=== PATIENT | female | born 1955 | race Caucasian/White ===

== ENCOUNTER 2021-12-22 15:30 | Inpatient (IN) | payer MEDICARE, BC ==
[2021-12-22] MEDS ORDERED: Magnesium 2 GM/50 ML BAG (IN WATER) ONE (17:45)
[2021-12-22] MEDS ORDERED: Amiodarone 150 MG/3 ML VIAL ONE (17:45)
[2021-12-22 17:52] LABS: #Basophils 0.1 thou/uL (0.0-0.2); #Eosinphils 0.1 thou/uL (0.0-0.7); #Lymphocytes 1.9 thou/uL (1.20-3.40); #Monocytes 0.4 thou/uL (0.11-0.59); %Basophils 1.2 % (0.0-1.0); %Eosinophils 1.3 % (0.0-10.0); %Lymphocytes 42.6 % (21.0-51.0); %Monocytes 9.5 % (0.0-10.0); %Neutrophils 45.4 % (42.0-75.0); Mean Corpuscular Hemoglobin 31.9 pg (27.0-31.0); Mean Corpuscular Volume 96.8 fL (78.0-98.0); Platelet Count 194 thou/uL (130-400); RBC Distribution Width 11.8 % (11.5-14.5); Red Blood Cell (RBC) Count 4.06 mill/uL (4.20-5.40); White Blood Cell (WBC) Count 4.4 thou/uL (4.8-10.8)
[2021-12-22 18:07] LABS: ALT (SGPT) 44 U/L (8-55); AST (SGOT) 39 U/L (5-34); Albumin 4.2 g/dL (3.4-4.8); Alkaline Phosphatase 62 U/L (40-110); Anion Gap 13 mmol/L (10-20); BUN (Urea Nitrogen) 11 mg/dL (9.8-20.1); Bilirubin, Total 0.3 mg/dL (0.2-1.2); CK (CPK) 111 U/L (29-168); Calc. Creatinine Clearance 0 mL/min (70-130); Calcium 9.3 mg/dL (7.8-10.44); Carbon Dioxide 27 mmol/L (23-31); Chloride 106 mmol/L (98-107); Estimated GFR 84; Globulin 2.2 g/dL (2.4-3.5); Glucose 106 mg/dL (80-115); Lipase 106 U/L (8-78); Potassium 3.5 mmol/L (3.5-5.1); Protein, Total 6.4 g/dL (5.8-8.1); Sodium 142 mmol/L (136-145)
[2021-12-22] MEDS ORDERED: Electrolyte Replacement Protocol 1 EACH FS PRN (18:45)
[2021-12-22 19:00] LABS: Magnesium 2.3 mg/dL (1.6-2.6)
[2021-12-22 20:22] LABS: SARS-CoV-2 NAA Rapid Test Not Detected (NotDetected)
[2021-12-22] MEDS ORDERED: Acetaminophen 325 MG TAB PO PRN (20:27)
[2021-12-22] MEDS ORDERED: Ondansetron PF 4 MG/2 ML Vial IVP PRN (20:27)
[2021-12-22] MEDS ORDERED: Metoprolol Tartrate 25 MG TAB PO SCH (21:00)
[2021-12-22 21:11] LABS: Troponin I 0.038 ng/mL (< 0.028)
[2021-12-22 21:14] VITALS: BMI 22.3
[2021-12-22] MEDS: Famotidine 20 MG TAB PO SCH (21:28)
[2021-12-22] MEDS ORDERED: Metoprolol Tartrate 5 MG/5 ML VIAL IVP SCH (22:45)
[2021-12-23] MEDS ORDERED: Amiodarone 450 MG, Admixture Fee 1 EACH in Dextrose 5% in Water 250 ML IVPB SCH (00:30)
[2021-12-23 00:48] LABS: Troponin I 0.038 ng/mL (< 0.028)
[2021-12-23 03:37] LABS: #Eosinphils 0.1 thou/uL (0.0-0.7); #Lymphocytes 1.7 thou/uL (1.20-3.40); #Monocytes 0.4 thou/uL (0.11-0.59); #Neutrophils 3.3 thou/uL (1.40-6.50); %Basophils 0.6 % (0.0-1.0); %Eosinophils 1.3 % (0.0-10.0); %Lymphocytes 30.7 % (21.0-51.0); %Monocytes 7.6 % (0.0-10.0); %Neutrophils 59.8 % (42.0-75.0); Hemoglobin 12.7 g/dL (12.0-16.0); Mean Corpuscular HGB CONC 33.3 g/dL (32.0-36.0); Mean Corpuscular Hemoglobin 32.3 pg (27.0-31.0); Mean Corpuscular Volume 96.8 fL (78.0-98.0); Mean Platelet Volume 7.7 fL (7.4-10.4); Platelet Count 180 thou/uL (130-400); RBC Distribution Width 11.8 % (11.5-14.5); Red Blood Cell (RBC) Count 3.92 mill/uL (4.20-5.40); White Blood Cell (WBC) Count 5.4 thou/uL (4.8-10.8)
[2021-12-23 04:00] LABS: Anion Gap 11 mmol/L (10-20); BUN (Urea Nitrogen) 9 mg/dL (9.8-20.1); Calc. Creatinine Clearance 72 mL/min (70-130); Calcium 8.3 mg/dL (7.8-10.44); Carbon Dioxide 23 mmol/L (23-31); Chloride 110 mmol/L (98-107); Estimated GFR 94; Glucose 109 mg/dL (80-115); Potassium 3.7 mmol/L (3.5-5.1); Sodium 140 mmol/L (136-145)
[2021-12-23 04:05] LABS: ALT (SGPT) 44 U/L (8-55); AST (SGOT) 39 U/L (5-34); Albumin 3.5 g/dL (3.4-4.8); Alkaline Phosphatase 52 U/L (40-110); Bilirubin, Direct 0.1 mg/dL (0.1-0.3); Bilirubin, Total 0.3 mg/dL (0.2-1.2); Magnesium 2.4 mg/dL (1.6-2.6); Protein, Total 5.2 g/dL (5.8-8.1)
[2021-12-23] MEDS ORDERED: Enoxaparin Sodium 40 MG/0.4 ML SYRINGE SC SCH (09:00)
[2021-12-23] MEDS ORDERED: Levothyroxine Sodium 25 MCG TAB PO SCH (09:15)
[2021-12-23] MEDS: Metoprolol Tartrate 25 MG TAB PO SCH ×2 (10:06→20:53)
[2021-12-23] MEDS: Famotidine 20 MG TAB PO SCH ×2 (10:07→20:53)
[2021-12-23] MEDS: Apixaban 5 MG TAB PO SCH ×2 (10:07→20:53)
[2021-12-23] MEDS ORDERED: Dronedarone HCl 400 MG TAB PO SCH ×2 (13:30→21:00)
[2021-12-23] MEDS ORDERED: Apixaban 5 MG TAB PO SCH (21:00)
[2021-12-24 04:51] LABS: #Basophils 0.1 thou/uL (0.0-0.2); #Eosinphils 0.1 thou/uL (0.0-0.7); #Lymphocytes 1.5 thou/uL (1.20-3.40); #Monocytes 0.4 thou/uL (0.11-0.59); #Neutrophils 2.5 thou/uL (1.40-6.50); %Basophils 1.1 % (0.0-1.0); %Eosinophils 2.7 % (0.0-10.0); %Lymphocytes 33.2 % (21.0-51.0); %Monocytes 9.5 % (0.0-10.0); %Neutrophils 53.5 % (42.0-75.0); Mean Corpuscular HGB CONC 33.3 g/dL (32.0-36.0); Mean Corpuscular Hemoglobin 32.8 pg (27.0-31.0); Mean Corpuscular Volume 98.3 fL (78.0-98.0); Platelet Count 171 thou/uL (130-400); RBC Distribution Width 11.7 % (11.5-14.5); Red Blood Cell (RBC) Count 3.67 mill/uL (4.20-5.40); White Blood Cell (WBC) Count 4.6 thou/uL (4.8-10.8)
[2021-12-24 05:18] LABS: Anion Gap 8 mmol/L (10-20); BUN (Urea Nitrogen) 7 mg/dL (9.8-20.1); Calc. Creatinine Clearance 72 mL/min (70-130); Calcium 8.6 mg/dL (7.8-10.44); Carbon Dioxide 26 mmol/L (23-31); Chloride 110 mmol/L (98-107); Estimated GFR 94; Glucose 92 mg/dL (80-115); Magnesium 2.2 mg/dL (1.6-2.6); Potassium 3.7 mmol/L (3.5-5.1); Sodium 140 mmol/L (136-145)
[2021-12-24] MEDS: Levothyroxine Sodium 25 MCG TAB PO SCH (05:47)
[2021-12-24] MEDS: Dronedarone HCl 400 MG TAB PO SCH ×2 (09:32→20:22)
[2021-12-24] MEDS: Metoprolol Tartrate 25 MG TAB PO SCH ×2 (09:32→20:39)
[2021-12-24] MEDS: Apixaban 5 MG TAB PO SCH ×2 (09:32→20:21)
[2021-12-24] MEDS: Famotidine 20 MG TAB PO SCH ×2 (09:32→20:21)
[2021-12-24] MEDS ORDERED: Metoprolol Tartrate 25 MG TAB PO SCH (13:00)
[2021-12-24] MEDS ORDERED: Diltiazem 125 MG in Sodium Chloride 0.9% 100 ML IVPB SCH (13:00)
[2021-12-24] MEDS: Diltiazem 125 MG in Sodium Chloride 0.9% 100 ML IVPB SCH (13:35)
[2021-12-25] MEDS: Levothyroxine Sodium 25 MCG TAB PO SCH (04:55)
[2021-12-25 05:15] LABS: #Basophils 0.1 thou/uL (0.0-0.2); #Eosinphils 0.1 thou/uL (0.0-0.7); #Lymphocytes 1.9 thou/uL (1.20-3.40); #Monocytes 0.5 thou/uL (0.11-0.59); #Neutrophils 3.4 thou/uL (1.40-6.50); %Basophils 0.8 % (0.0-1.0); %Lymphocytes 31.8 % (21.0-51.0); %Monocytes 8.6 % (0.0-10.0); %Neutrophils 56.7 % (42.0-75.0); Mean Corpuscular HGB CONC 32.8 g/dL (32.0-36.0); Mean Corpuscular Volume 97.6 fL (78.0-98.0); Mean Platelet Volume 7.8 fL (7.4-10.4); Platelet Count 184 thou/uL (130-400); RBC Distribution Width 11.6 % (11.5-14.5); Red Blood Cell (RBC) Count 3.74 mill/uL (4.20-5.40)
[2021-12-25 05:38] LABS: Anion Gap 12 mmol/L (10-20); BUN (Urea Nitrogen) 7 mg/dL (9.8-20.1); Calc. Creatinine Clearance 67 mL/min (70-130); Calcium 8.5 mg/dL (7.8-10.44); Carbon Dioxide 24 mmol/L (23-31); Chloride 107 mmol/L (98-107); Estimated GFR 87; Glucose 91 mg/dL (80-115); Magnesium 2.1 mg/dL (1.6-2.6); Potassium 3.8 mmol/L (3.5-5.1); Sodium 139 mmol/L (136-145)
[2021-12-25] MEDS: Apixaban 5 MG TAB PO SCH ×2 (10:13→20:00)
[2021-12-25] MEDS: Famotidine 20 MG TAB PO SCH ×2 (10:13→20:00)
[2021-12-25] MEDS: Metoprolol Tartrate 25 MG TAB PO SCH ×2 (10:14→20:00)
[2021-12-25] MEDS: Dronedarone HCl 400 MG TAB PO SCH ×2 (10:14→20:00)
[2021-12-25] MEDS: Diltiazem 125 MG in Sodium Chloride 0.9% 100 ML IVPB SCH (17:33)
[2021-12-26] MEDS: Levothyroxine Sodium 25 MCG TAB PO SCH (05:31)
[2021-12-26] MEDS: Apixaban 5 MG TAB PO SCH (09:58)
[2021-12-26] MEDS: Famotidine 20 MG TAB PO SCH (09:58)
[2021-12-26] MEDS: Dronedarone HCl 400 MG TAB PO SCH (10:01)
[2021-12-26] MEDS: Metoprolol Tartrate 25 MG TAB PO SCH (10:03)
[2021-12-26 10:20] LABS: Anion Gap 12 mmol/L (10-20); BUN (Urea Nitrogen) 7 mg/dL (9.8-20.1); Calc. Creatinine Clearance 66 mL/min (70-130); Calcium 8.9 mg/dL (7.8-10.44); Carbon Dioxide 24 mmol/L (23-31); Chloride 108 mmol/L (98-107); Estimated GFR 85; Glucose 82 mg/dL (80-115); Potassium 3.7 mmol/L (3.5-5.1); Sodium 140 mmol/L (136-145)
[2021-12-26 13:58] VITALS: BP 100/55; TEMP 98.3
== END 2021-12-26 15:15 | disposition home or self-care (01) | DRG 309 ==
LOC: ERS 15:30 → CCU 18:56 → 2SW 12-23 21:51
PROVIDERS: ADMIT Internal Medicine; ATTEND Internal Medicine
DX: I47.2 Ventricular tachycardia (principal); B58.00 Toxoplasma oculopathy, unspecified; I48.92 Unspecified atrial flutter; R79.89 Other specified abnormal findings of blood chemistry; E89.0 Postprocedural hypothyroidism; I44.0 Atrioventricular block, first degree; I44.7 Left bundle-branch block, unspecified; Z20.822 Contact with and (suspected) exposure to COVID-19; R91.1 Solitary pulmonary nodule; I47.1 Supraventricular tachycardia; Z79.01 Long term (current) use of anticoagulants; Z79.890 Hormone replacement therapy; Z79.899 Other long term (current) drug therapy; Z91.030 Bee allergy status; Z85.820 Personal history of malignant melanoma of skin; Z90.89 Acquired absence of other organs; Z87.891 Personal history of nicotine dependence; Z80.0 Family history of malignant neoplasm of digestive organs; Z82.49 Family history of ischemic heart disease and other diseases of the circulatory system
CPT/HCPCS: 36415; 71045; 80048; 80053; 80076; 82550; 82553; 83690; 83735; 83880; 84443; 84484; 85025; 93005; 93010; 96361; 96365; 96375; 96376; J0282; J3475; J3490; J7070; U0002

== ENCOUNTER 2022-01-30 10:06 | Inpatient (IN) | payer MEDICARE, BC ==
[2022-01-30] MEDS ORDERED: Adenosine 6 MG/2 ML VIAL ONE ×3 (10:32→17:29)
[2022-01-30] MEDS ORDERED: Diltiazem 125 MG/25 ML ONE (10:32)
[2022-01-30 11:28] LABS: #Basophils 0.1 thou/uL (0.0-0.2); #Eosinphils 0.1 thou/uL (0.0-0.7); #Lymphocytes 2.7 thou/uL (1.20-3.40); #Monocytes 0.5 thou/uL (0.11-0.59); #Neutrophils 2.8 thou/uL (1.40-6.50); %Eosinophils 1.2 % (0.0-10.0); %Monocytes 8.1 % (0.0-10.0); %Neutrophils 45.6 % (42.0-75.0); Mean Corpuscular HGB CONC 32.5 g/dL (32.0-36.0); Mean Corpuscular Hemoglobin 31.3 pg (27.0-31.0); Mean Corpuscular Volume 96.3 fl (78.0-98.0); Mean Platelet Volume 8.3 fL (7.4-10.4); Platelet Count 253 thou/uL (130-400); RBC Distribution Width 12.4 % (11.5-14.5); Red Blood Cell (RBC) Count 5.12 mill/uL (4.20-5.40); White Blood Cell (WBC) Count 6.1 thou/uL (4.8-10.8)
[2022-01-30 11:42] LABS: PTT 30.2 sec (22.9-36.1); Prothrombin Time 13.7 sec (12.0-14.7)
[2022-01-30 11:52] LABS: ALT (SGPT) 18 U/L (8-55); AST (SGOT) 21 U/L (5-34); Albumin 4.5 g/dL (3.4-4.8); Alkaline Phosphatase 64 U/L (40-110); Anion Gap 14 mmol/L (10-20); BUN (Urea Nitrogen) 8 mg/dL (9.8-20.1); Bilirubin, Total 0.5 mg/dL (0.2-1.2); CK (CPK) 66 U/L (29-168); Calc. Creatinine Clearance 0 mL/min (70-130); Carbon Dioxide 23 mmol/L (23-31); Chloride 106 mmol/L (98-107); Estimated GFR 80; Globulin 2.6 g/dL (2.4-3.5); Glucose 98 mg/dL (80-115); Magnesium 2.2 mg/dL (1.6-2.6); Potassium 4.3 mmol/L (3.5-5.1); Protein, Total 7.1 g/dL (5.8-8.1); Sodium 139 mmol/L (136-145)
[2022-01-30] MEDS ORDERED: Diltiazem 125 MG in Sodium Chloride 0.9% 100 ML IVPB SCH (14:00)
[2022-01-30 14:55] LABS: SARS-CoV-2 NAA Rapid Test Not Detected (NotDetected)
[2022-01-30] MEDS ORDERED: Amiodarone 150 MG, Admixture Fee 1 EACH in Dextrose 5% in Water 100 ML IVPB SCH (17:30)
[2022-01-30] MEDS: Amiodarone 450 MG, Admixture Fee 1 EACH in Dextrose 5% in Water 250 ML IVPB SCH (18:23)
[2022-01-30 20:55] VITALS: BMI 21.0
[2022-01-30] MEDS ORDERED: Dronedarone HCl 400 MG TAB PO SCH (21:00)
[2022-01-30] MEDS: Apixaban 5 MG TAB PO SCH (21:33)
[2022-01-31] MEDS ORDERED: Digoxin 0.5 MG/2 ML AMP ONE (04:20)
[2022-01-31 04:43] LABS: Anion Gap 9 mmol/L (10-20); BUN (Urea Nitrogen) 8 mg/dL (9.8-20.1); Calc. Creatinine Clearance 69 mL/min (70-130); Calcium 8.8 mg/dL (7.8-10.44); Carbon Dioxide 25 mmol/L (23-31); Chloride 110 mmol/L (98-107); Estimated GFR 94; Glucose 97 mg/dL (80-115); Potassium 3.6 mmol/L (3.5-5.1); Sodium 140 mmol/L (136-145)
[2022-01-31] MEDS ORDERED: Digoxin 0.5 MG/2 ML AMP SLOW IVP SCH (04:45)
[2022-01-31 05:53] LABS: Eosinophils 3 % (0-10); Hemoglobin 12.8 g/dL (12.0-16.0); Lymphocytes 57 % (21-51); MDiff Complete? YES; Mean Corpuscular Hemoglobin 31.6 pg (27.0-31.0); Mean Corpuscular Volume 95.9 fl (78.0-98.0); Mean Platelet Volume 8.2 fL (7.4-10.4); Monocytes 3 % (0-10); Neutrophil 36 % (42-75); Platelet Count 212 thou/uL (130-400); Platelet Morphology Comment Appears Adequate; RBC Distribution Width 12.2 % (11.5-14.5); RBC Morphology Normal; Red Blood Cell (RBC) Count 4.05 mill/uL (4.20-5.40); White Blood Cell (WBC) Count 5.6 thou/uL (4.8-10.8)
[2022-01-31] MEDS: Amiodarone 450 MG, Admixture Fee 1 EACH in Dextrose 5% in Water 250 ML IVPB SCH ×2 (06:35→21:34)
[2022-01-31] MEDS: Levothyroxine Sodium 25 MCG TAB PO SCH (06:45)
[2022-01-31] MEDS: Apixaban 5 MG TAB PO SCH (09:04)
[2022-01-31] MEDS: Melatonin 3 MG TAB PO PRN (21:34)
[2022-02-01 04:18] LABS: Anion Gap 10 mmol/L (10-20); BUN (Urea Nitrogen) 6 mg/dL (9.8-20.1); Calc. Creatinine Clearance 69 mL/min (70-130); Calcium 8.8 mg/dL (7.8-10.44); Carbon Dioxide 24 mmol/L (23-31); Chloride 110 mmol/L (98-107); Estimated GFR 94; Glucose 89 mg/dL (80-115); Potassium 3.8 mmol/L (3.5-5.1); Sodium 140 mmol/L (136-145)
[2022-02-01 04:37] LABS: Free T4 (Free Thyroxine) 0.87 ng/dL (0.70-1.48)
[2022-02-01] MEDS: Levothyroxine Sodium 25 MCG TAB PO SCH (06:34)
[2022-02-01] MEDS ORDERED: Iopamidol 370 76% 50 ML VIAL FS ONE (11:47)
[2022-02-01] MEDS ORDERED: CEFAZOLIN 1 GM VIAL ONE (13:57)
[2022-02-01] MEDS ORDERED: Heparin 10,000 UNITS/ 10 ML VIAL ONE (13:57)
[2022-02-01] MEDS ORDERED: Gentamicin 80 MG/100 ML BAG ONE (13:57)
[2022-02-01] MEDS ORDERED: Lidocaine 1% (PF) 30 ML VIAL ONE (13:57)
[2022-02-01] MEDS ORDERED: DOPamine 400 MG/D5W 250 ML 250 ML ONE (13:57)
[2022-02-01] MEDS ORDERED: FENTANYL 50 MCG/ML 1 ML VIAL ONE ×2 (15:36→16:58)
[2022-02-01] MEDS ORDERED: Midazolam HCl 2 mg/2 ml Vial ONE ×2 (15:36→18:46)
[2022-02-01] MEDS: Acetaminophen 325 MG TAB PO PRN (20:33)
[2022-02-01] MEDS: Melatonin 3 MG TAB PO PRN (20:34)
[2022-02-01] MEDS: Morphine 4 MG/ML VIAL SLOW IVP PRN (21:57)
[2022-02-02] MEDS: Acetaminophen 325 MG TAB PO PRN (03:32)
[2022-02-02] MEDS: Levothyroxine Sodium 25 MCG TAB PO SCH (05:03)
[2022-02-02] MEDS ORDERED: Acetaminophen/Codeine 30-300mg Tablet PO PRN ×2 (05:45)
[2022-02-02] MEDS ORDERED: FLU VACC QS2022-23(65YR UP)/PF 240 MCG/0.7 ML SYRINGE IM ONE (09:00)
[2022-02-02] MEDS ORDERED: Cephalexin 250 MG CAP PO SCH (09:00)
[2022-02-02] MEDS: Morphine 4 MG/ML VIAL SLOW IVP PRN (09:56)
[2022-02-02 11:23] VITALS: TEMP 97.7
== END 2022-02-02 13:48 | disposition home or self-care (01) | DRG 243 ==
LOC: ERS 10:06 → IMCU/EMU 13:13
PROVIDERS: ADMIT Family Medicine; ATTEND Family Medicine
PROC: 02583ZZ Destruction of Conduction Mechanism, Percutaneous Approach (ICD-10-PCS; principal; 2022-02-01)
PROC: 02K83ZZ Map Conduction Mechanism, Percutaneous Approach (ICD-10-PCS; 2022-02-01)
PROC: 0JH607Z Insertion of Cardiac Resynchronization Pacemaker Pulse Generator into Chest Subcutaneous Tissue and Fascia, Open Approach (ICD-10-PCS; 2022-02-01)
PROC: 02H63JZ Insertion of Pacemaker Lead into Right Atrium, Percutaneous Approach (ICD-10-PCS; 2022-02-01)
PROC: 02HL3JZ Insertion of Pacemaker Lead into Left Ventricle, Percutaneous Approach (ICD-10-PCS; 2022-02-01)
PROC: 02HK3JZ Insertion of Pacemaker Lead into Right Ventricle, Percutaneous Approach (ICD-10-PCS; 2022-02-01)
DX: I47.1 Supraventricular tachycardia (principal); I42.8 Other cardiomyopathies; B58.00 Toxoplasma oculopathy, unspecified; Z20.822 Contact with and (suspected) exposure to COVID-19; I48.92 Unspecified atrial flutter; I44.7 Left bundle-branch block, unspecified; I50.9 Heart failure, unspecified; I44.0 Atrioventricular block, first degree; I49.5 Sick sinus syndrome; E89.0 Postprocedural hypothyroidism; K59.00 Constipation, unspecified; Z28.21 Immunization not carried out because of patient refusal; Z98.890 Other specified postprocedural states; Z79.890 Hormone replacement therapy; Z91.030 Bee allergy status; Z91.09 Other allergy status, other than to drugs and biological substances; Z90.89 Acquired absence of other organs; Z79.899 Other long term (current) drug therapy; Z79.01 Long term (current) use of anticoagulants; Z87.891 Personal history of nicotine dependence; Z85.72 Personal history of non-Hodgkin lymphomas
CPT/HCPCS: 33208; 33225; 36415; 71045; 80048; 80053; 82550; 83735; 84439; 84443; 84481; 84484; 85025; 85610; 85730; 93005; 93010; 93306; 93650; 96361; 96374; 96375; 96376; 99156; 99157; C1760; C1769; J0153; J0282; J0690; J1160; J1265; J1580; J1644; J2001; J2250; J2270; J3010; J7070; Q9967; U0002

== ENCOUNTER 2022-08-02 07:25 | Outpatient (CLI) | payer MEDICARE, BC | END 2022-08-02 07:26 | disposition home or self-care (01) | LOC: ULT 07:25 | PROVIDERS: ATTEND Internal Medicine | DX: R00.0 Tachycardia, unspecified (principal) | CPT/HCPCS: 93880 ==